=== PATIENT | female | born 1990 | race Caucasian/White ===

== ENCOUNTER 2018-07-31 09:58 | Emergency (ER) | payer OTHER ==
--- NOTE | 2018-07-31 10:21 | C.PDOC ---
History Of Present Illness RECUR VICENTE X 4 DAYS. PS HO SIM PRIOR VICENTE BUT CURRENT MORE PROLONGED THAN USUAL. +NAUSEA. NO FEVER, TRAUMA. NO PAIN MEDS TRIED. DENIES OTHER ASSOC SX EXAM NONTOXIC HEENT NO PHOTOPHOBIA; ATRAUM; NONTEND NECK SUPPLE NO MENINGISMUS NEURO INTACT REMAINDER NEG <Symone Richard - Last Filed: 07/31/18 11:52> History Per: Patient History/Exam Limitations: no limitations Onset/Duration Of Symptoms: Days Current Symptoms Are (Timing): Still Present Severity: Moderate <Symone Richard - Last Filed: 07/31/18 11:52> <Mandy Puentes - Last Filed: 07/31/18 13:37> Time Seen by Provider: 07/31/18 10:17 Chief Complaint (Nursing): Headache Past Medical History Reviewed: Historical Data, Nursing Documentation, Vital Signs Vital Signs: Last Vital Signs Temp 98 F 07/31/18 10:16 Pulse 91 H 07/31/18 10:16 Resp 18 07/31/18 10:16 BP 123/79 07/31/18 10:16 Pulse Ox 98 07/31/18 10:16 - Medical History PMH: No Chronic Diseases Surgical History: No Surg Hx Family History: States: No Known Family Hx - Social History Hx Alcohol Use: No Hx Substance Use: No - Immunization History Hx Tetanus Toxoid Vaccination: No Hx Influenza Vaccination: No Hx Pneumococcal Vaccination: No <Symone Richard - Last Filed: 07/31/18 11:52> Vital Signs: Last Vital Signs Temp 98 F 07/31/18 10:16 Pulse 91 H 07/31/18 10:16 Resp 18 07/31/18 10:16 BP 123/79 07/31/18 10:16 Pulse Ox 98 07/31/18 11:53 <Mandy Puentes - Last Filed: 07/31/18 13:37> Review Of Systems Except As Marked, All Systems Reviewed And Found Negative. Constitutional: Negative for: Fever, Chills Gastrointestinal: Positive for: Nausea. Negative for: Vomiting Neurological: Positive for: Headache <Symone Richard - Last Filed: 07/31/18 11:52> Physical Exam - Physical Exam Appears: Non-toxic Skin: Normal Color, Warm, Dry Head: Atraumatic, Normacephalic, No Tenderness Eye(s): bilateral: Normal Inspection (no photophobia) Neck: Supple, Other (no meningismus) Cardiovascular: Rhythm Regular Respiratory: Other (NARD) Neurological/Psych: Oriented x3, Normal Speech, Normal Motor, Normal Sensation <Symone Richard - Last Filed: 07/31/18 11:52> ED Course And Treatment O2 Sat by Pulse Oximetry: 98 (RA) Pulse Ox Interpretation: Normal Reevaluation Time: 11:25 Reassessment Condition: Improved (NEURO INTACT. EXT AROM WO DIFF PS FEELS BETTER . FU PMD/CLINIC) <Symone Richard - Last Filed: 07/31/18 11:52> - Laboratory Results Result Diagrams: 07/31/18 12:11 07/31/18 12:11 Lab Results: PT 12.0 SECONDS (9.7-12.2) 07/31/18 12:11 INR 1.1 07/31/18 12:11 APTT 36 SECONDS (21-34) H 07/31/18 12:11 Total Bilirubin 0.6 mg/dL (0.2-1.3) 07/31/18 12:11 AST 46 U/L (14-36) H 07/31/18 12:11 ALT 22 U/L (9-52) 07/31/18 12:11 Alkaline Phosphatase 102 U/L (38-126) 07/31/18 12:11 Total Protein 8.4 g/dL (6.3-8.3) H 07/31/18 12:11 Albumin 4.6 g/dL (3.5-5.0) 07/31/18 12:11 Globulin 3.7 gm/dL (2.2-3.9) 07/31/18 12:11 Albumin/Globulin Ratio 1.2 (1.0-2.1) 07/31/18 12:11 Lipase 91 U/L (23-300) 07/31/18 12:11 Progress Note: 1:33PM- Patient is resting comfortably, has no nausea/vomiting or headache. Blood work unremarkable. Abdomen is soft and nontender. Will discharge patient home. Instructed her to follow up with PMD/clinic in 1-2 days. She understands she should return to ED if symptoms worsen. <Mandy Puentes - Last Filed: 07/31/18 13:37> Progress - Re-Evaluation Re-evaluation Note: 07/31/18 11:52 PER RN, PS STATES VOMITING BRB IN BATHROOM. PT FLUSHED CONTENTS, UNABLE TO VERIFY. DENIES HO PRIOR UGIB. VSS. <Symone Richard - Last Filed: 07/31/18 11:52> Medical Decision Making Medical Decision Making: Plan: --Motrin PO --Reglan PO --Tylenol PO <Symone Richard - Last Filed: 07/31/18 11:52> Disposition Counseled Patient/Family Regarding: Diagnosis, Need For Followup, Rx Given - Disposition Disposition Time: 11:53 <Symone Richard - Last Filed: 07/31/18 11:52> Counseled Patient/Family Regarding: Studies Performed, Diagnosis, Need For Followup - Disposition Disposition Time: 13:35 <Mandy Puentes - Last Filed: 07/31/18 13:37> - Disposition Referrals: [facility] [Outside] [facility] [Outside] Condition: STABLE Prescriptions: Acetaminophen [Tylenol 325mg tab] 650 mg PO Q6 #30 tab Ibuprofen [Motrin] 600 mg PO Q6 #30 tab Metoclopramide [Reglan] 1 tab PO TID PRN #25 tab PRN Reason: Nausea/Vomiting Instructions: Headache, Adult (DC) Forms: [facility] (Sami) - Clinical Impression Clinical Impression: Headache - Scribe Statement The provider has reviewed the documentation as recorded by the Scribe Amanda Yost Provider Attestation: All medical record entries made by the Scribe were at my direction and personally dictated by me. I have reviewed the chart and agree that the record accurately reflects my personal performance of the history, physical exam, medical decision making, and the department course for this patient. I have also personally directed, reviewed, and agree with the discharge instructions and disposition. <Symone Richard - Last Filed: 07/31/18 11:52> Physician Patient Turnover Patient Signed Over To: Mandy uPentes Handoff Comments: FU LABS, DISPO <Symone Richard - Last Filed: 07/31/18 11:52>
[2018-07-31 12:17] LABS: BASO % 0.7 % (0.0-2.0); EOS # 0.2 K/uL (0.0-0.7); EOS % 2.6 % (0.0-4.0); HEMOGLOBIN 12.8 g/dL (11.0-16.0); LYMPH % 30.5 % (20.0-40.0); MEAN CORPUSCULAR HGB CONC 32.1 g/dL (33.0-37.0); MEAN PLATELET VOLUME 7.5 fL (7.2-11.7); MONO # 0.5 K/uL (0.0-0.8); MONO % 7.3 % (0.0-10.0); NEUT # 3.9 K/uL (1.8-7.0); NEUT % 58.9 % (50.0-75.0); NRBC % 0.1 % (0.0-2.0); RBC 4.91 Mil/uL (3.80-5.20); RED CELL DISTRIBUTION WIDTH 14.2 % (11.5-14.5); WHITE BLOOD COUNT 6.6 K/uL (4.8-10.8)
[2018-07-31 12:26] LABS: INR 1.1
[2018-07-31 12:33] LABS: ALB/GLOB RATIO 1.2 (1.0-2.1); ALBUMIN 4.6 g/dL (3.5-5.0); ALT/SGPT 22 U/L (9-52); AST/SGOT 46 U/L (14-36); BLOOD UREA NITROGEN 18 mg/dL (7-17); CALCIUM 8.8 mg/dl (8.6-10.4); GFR NON-AFRICAN AMERICAN > 60; LIPASE 91 U/L (23-300)
[2018-07-31] MEDS ORDERED: Sodium Chloride 0.9% 1,000 ML IV ONE (12:38)
[2018-07-31 13:57] VITALS: BP 105/67; PULSE 87; RESP 17; TEMP 97.9; O2SAT 100
== END 2018-07-31 14:00 | disposition home or self-care (01) ==
LOC: C.ER 09:58
DX: R51 Headache (principal)
CPT/HCPCS: 80053; 81025; 83690; 85025; 85610; 85730; 96361; 96374; 99285; G0328; J7030